=== PATIENT | male | born 1945 | race Caucasian/White ===

== ENCOUNTER 2016-06-23 05:54 | Day surgery (SDC) | payer OTHER, MEDICARE ==
[2016-06-23] MEDS ORDERED: diphenhydrAMINE 25 MG CAP PO ONE ×2 (06:19→06:47)
[2016-06-23] MEDS ORDERED: ASPIRIN EC 325 MG TAB PO ONE ×2 (06:19→06:47)
[2016-06-23] MEDS ORDERED: FAMOTIDINE 20 MG TAB PO ONE (06:19)
[2016-06-23] MEDS ORDERED: NS 1,000 ML IV ONE (06:19)
[2016-06-23] MEDS ORDERED: DIAZEPAM 5 MG TAB PO ONE (06:19)
--- NOTE | 2016-06-23 06:37 | CPEKG ---
Heart Rate: 65 RR Interval: 923 P-R Interval: 288 QRSD Interval: 154 QT Interval: 492 QTC Interval: 512 P Saunemin: -85 QRS Saunemin: -81 T Wave Saunemin: 88 EKG Severity - ABNORMAL ECG - EKG Impression: A-V DUAL-PACED RHYTHM Electronically Signed By: Sascha Rdoríguez 23-Jun-2016 14:52:24
[2016-06-23] MEDS ORDERED: DIAZEPAM 5 MG TAB ONE (06:47)
[2016-06-23] MEDS ORDERED: FAMOTIDINE 20 MG TAB ONE (06:47)
[2016-06-23 06:51] LABS: % IMMATURE GRANULYOCYTES 0.2 % (0.0-1.1); ABSOLUTE IMMATURE GRANULOCYTES 0.01 10^3/uL (0.00-0.10); ADD DIFF? NO; ADD MORPH? NO; ADD SCAN? NO; ATYPICAL LYMPHOCYTE FLAG 0 (0-99); FRAGMENT RBC FLAG 0 (0-99); HEMATOCRIT 45.1 % (40.0-51.0); HEMOGLOBIN 15.6 g/dL (13.7-17.5); LEFT SHIFT FLG 0 (0-99); LIPEMIA HEMOLYSIS FLAG 90 (0-99); MEAN CELL HEMOGLOBIN CONCENTR. 34.6 g/dL (32.4-36.7); MEAN CELL VOLUME 89.5 fL (81.5-99.8); MEAN PLATELET VOLUME 8.8 fL (8.7-11.7); PLATELET CLUMPS FLAG 0 (0-99); PLATELET COUNT 178 10^3/uL (150-400); RED BLOOD CELL COUNT 5.04 10^6/uL (4.40-6.38); RED CELL DISTRIBUTION WIDTH 13.2 % (11.5-15.2)
[2016-06-23 07:00] LABS: INR 1.08 (0.83-1.16); PROTIME(PATIENT) 13.9 SEC (12.0-15.0)
[2016-06-23 07:13] LABS: ANION GAP 10 mEq/L (8-16); CALCIUM 9.1 mg/dL (8.5-10.4); CARBON DIOXIDE 24 mEq/l (22-31); CHLORIDE 111 mEq/L (97-110); CHOLESTEROL 93 mg/dL (140-220); CHOLESTEROL/HDL RATIO 2.45 RATIO (1.00-4.97); GLOMERULAR FILTRATION RATE > 60; GLUCOSE 101 mg/dL (70-100); HIGH DENSITY LIPOPROTEIN 38 mg/dL (40-65); LDL/HDL RATIO 1.08 RATIO (1.00-3.64); LOW DENSITY LIPOPROTEIN 41 mg/dL (80-100); MAGNESIUM 1.9 mg/dL (1.6-2.3); NON-HIGH DENSITY LIPOPROTEIN 55 mg/dL (90-129); POTASSIUM 4.5 mEq/L (3.5-5.2); SODIUM 145 mEq/L (134-144); TRIGLYCERIDE 74 mg/dL (40-150); VERY LOW DENSITY LIPOPROTEINS 14 mg/dL (8-25)
[2016-06-23] MEDS ORDERED: IOPAMIDOL (ISOVUE-370) 150 ML BTL IV ONE (08:18)
[2016-06-23] MEDS ORDERED: HEPARIN 10,000 UNIT/10 ML MDV ONE (08:18)
[2016-06-23] MEDS ORDERED: VERAPAMIL 5 MG/2 ML VIAL ONE (08:18)
[2016-06-23] MEDS ORDERED: MIDAZOLAM 2 MG/2 ML VIAL ONE (08:18)
[2016-06-23] MEDS ORDERED: LIDOCAINE 1% 30 ML SDV ONE (08:18)
[2016-06-23] MEDS ORDERED: fentaNYL 100 MCG/2 ML INJ ONE (08:18)
--- NOTE | 2016-06-23 09:36 | SUROPNOTE ---
[facility] Operative Report - Surgery Date of Procedure: 06/23/16 Indication: This patient is a 71 year old man, with a history of coronary artery disease on the basis of calcium score, treated hyperlipidemia, and pacemaker placement, presenting with new onset paroxysmal atrial fibrillation, detected on pacemaker check one month ago. In the setting of new atrial fibrillation, nuclear stress testing and echocardiogram was performed. Myocardial perfusion imaging was abnormal demonstrating a moderate size, moderate intensity reversible defect involving the full extent of the inferior wall consistent with ischemia, also with hypokinesis of the inferior wall and reduced ejection fraction of 46%. LVEF on echocardiogram was 50-55%. The patient is asymptomatic. Left heart catheterization indicated secondary to new onset atrial fibrillation and intermediate risk non-invasive testing. Procedures performed: 1. Left heart catheterization with left ventricular and selective coronary angiography. Description of procedure: Description, risks, benefits and alternatives were discussed in detail. Informed consent was obtained. The patient was brought to the catheterization laboratory where a timeout was performed. The right wrist was sterilely prepped and draped. 2% lidocaine utilized for local anesthetic. A 5/6-Slovak slender hemostatic sheath placed right radial artery utilizing micropuncture technique. Intraarterial verapamil and intravenous heparin was administered. Diagnostic coronary angiography performed with 6-Slovak, Brenda left-3.5 and Brenda right -4 catheter. A 0.035 guidewire, J Glidewire, and short angled AquaTrack were utilized to pass catheters secondary to the tortuosity of the radial vasculature. Pigtail catheter was then utilized for left heart catheterization and left ventricular angiography. Arterial sheath was removed and TR band was placed. Findings: 1. Hemodynamics: Aortic pressure 115/72, mean of 89, left ventricular pressure 123/10/16 end-diastolic. There was no significant pull back gradient across the aortic valve. 2. Left ventricle: The left ventricle appears normal in size. Left ventricle is normal shape. There is apical pacemaker mediated dyssynchrony with an ejection fraction of 50%. There are no filling defects or significant mitral regurgitation. The aortic root and ascending aorta appears normal, there is no dissection or aneurysm formation. 3. Coronary angiography: Left main: The left main is a long trifurcating vessel with mild proximal tapering that does not appear atherosclerotic in nature. 4. Left anterior descending: This is a moderately large vessel continuing around the apex, which gives rise to a moderate size mid diagonal branch, with minimal plaquing. 5. Ramus intermedius: This is a moderate size vessel with mild irregularities. 6. Circumflex: The circumflex is a non-dominate vessel with three obtuse marginal branches, which are large, moderate, and small in size respectively. The circumflex contains mild irregularities but no significant stenosis. 7. Right coronary: Large hyper-dominant vessel. There is a mid 20% stenosis, otherwise mild luminal irregularities. Large PDA and large multibranching posterolateral. Overall Impression: 1. Mild coronary artery disease without flow-limiting obstruction. 2. 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 Plan: 1. Continue aggressive risk modification and high dose statin therapy. 2. Anticoagulation for paroxysmal atrial fibrillation. Likely will start the patient on Pradaxa. Portions of this report were documented by a medical records supervisor. I have reviewed this report and agree with the documentation. Report scribed for Dr. Abilio Reich. Report scribed by Estrellita Maurer.
[2016-06-23] MEDS ORDERED: ONDANSETRON 4 MG/2 ML VIAL IVP PRN (10:02)
[2016-06-23] MEDS ORDERED: NITROGLYCERIN 0.4 MG BTL SL PRN (10:02)
[2016-06-23] MEDS ORDERED: OXYCODONE/APAP 5/325 TAB PO PRN (10:02)
[2016-06-23] MEDS ORDERED: ATROPINE SULFATE 1 MG/10 ML SYR IVP PRN (10:02)
[2016-06-23] MEDS ORDERED: HYDROCODONE/APAP 5/325 TAB PO PRN (10:02)
== END 2016-06-23 14:10 | disposition home or self-care (01) ==
LOC: FCATH 05:54
PROVIDERS: ATTEND Internal Medicine Interventional Cardiology
PROC: B2111ZZ Fluoroscopy of Multiple Coronary Arteries using Low Osmolar Contrast (ICD-10-PCS; principal; 2016-06-23)
PROC: 4A023N7 Measurement of Cardiac Sampling and Pressure, Left Heart, Percutaneous Approach (ICD-10-PCS; principal; 2016-06-23)
PROC: B2151ZZ Fluoroscopy of Left Heart using Low Osmolar Contrast (ICD-10-PCS; principal; 2016-06-23)
DX: I48.0 Paroxysmal atrial fibrillation (principal); I25.10 Atherosclerotic heart disease of native coronary artery without angina pectoris; R94.39 Abnormal result of other cardiovascular function study; I10 Essential (primary) hypertension; I77.9 Disorder of arteries and arterioles, unspecified; I49.5 Sick sinus syndrome; Z95.0 Presence of cardiac pacemaker
CPT/HCPCS: 93005; 93458; C1769; J1644; J2250; J3010; Q9967